=== PATIENT | male | born 1960 | race Caucasian/White ===

== ENCOUNTER 2023-06-20 11:19 | Emergency (ER) | payer OTHER, SELFPAY ==
--- NOTE | 2023-06-20 11:37 | ED.GENADULT ---
HPI - General Adult General Chief complaint: General Medical Stated complaint: Medication refill Source: patient Mode of arrival: ambulatory Limitations: no limitations History of Present Illness HPI narrative: Patient is a 63-year-old male presents emergency department requesting medication refill. He reports approximately 1 month ago he had cardiac stents placed at [facility], he was prescribed Brilinta 90 mg b.i.d., and initially received a 30 day supply. He states that he saw his primary guest services assistant in [place], [place] - Rai Ellis on 06/09, the prescription for Brilinta was never sent to pharmacy. He took his last dose this morning. He has been unable to make contact with his guest services assistant office for medication refill. Currently he is without any physical complaints. Related Data Previous Rx's Medication Instructions Recorded ticagrelor 90 mg tablet (Brilinta) 90 mg PO BID #14 tabs 06/20/23 Allergies Allergy/AdvReac Type Severity Reaction Status Date / Time No Known Allergies Allergy Verified 06/20/23 11:37 [No Known Allergies*] Review of Systems Review of Systems: Constitutional: No weight loss, fever, chills, weakness or fatigue. Skin: No rash or itching. Cardiovascular: No chest pain, chest pressure or chest discomfort. No palpitations or pedal edema. Respiratory: No shortness of breath, cough or sputum production. Gastrointestinal: No anorexia, nausea, vomiting or diarrhea. No abdominal pain or blood in stool. Genitourinary: No burning micturition. No urinary frequency or incontinence. Musculoskeletal: No muscle pain, back pain, joint pain or stiffness. Psychiatric: No depression or anxiety. Yes all other systems are reviewed and are negative PMFSH Past Medical History Attestation statement: The following information was validated with the patient. Source: old records reviewed Physical Exam ED Appearance: Alert.?Oriented to person, place and time. No acute distress.?Normal affect. Eyes: Pupils equal, round and reactive to light.? ENT: Pharynx normal.?? Neck: Normal inspection.? Neck supple.?? CVS: Heart sounds normal. Normal heart rate and rhythm.? Pulses normal.?? Respiratory: No respiratory distress.? Lung sounds clear to auscultation bilaterally?? Abdomen: Soft and non-tender. Skin: Skin warm and dry.? Normal skin color.? Extremities: No lower extremity edema.? No calf ttp? Neuro: Moves all extremities spontaneously. Sensation intact bilaterally. Ambulates with normal steady gait. Medical Decision Making Medical Decision Making MDM Narrative: Patient is a 63-year-old male past medical history of hypertension, migraines, recent coronary artery stenting at [facility] presenting to emergency department requesting medication refill. He is without any physical complaints. His physical examination is benign. He took his last dose of Brilinta the morning and he currently taking it twice daily as per HPI. I have sent a short course of Brilinta to his pharmacy, and advised to contact his primary care provider/guest services assistant to arrange for additional prescription refills. He verbalizes understanding. External Record Review External record reviewed: Outpatient record (Medical records from [facility] provided by patient) Chronic Conditions Patient?s care impacted by: Hypertension Discharge Plan Discharge Clinical Impression: History of coronary artery stent placement Patient Disposition: Home, Self-Care Additional Instructions: Please contact your guest services assistant or primary care provider 1st thing tomorrow morning to arrange for additional prescription refills. I have sent a short prescription of your Brilinta to the [facility] pharmacy. Prescriptions: New Brilinta 90 mg tablet 90 mg PO BID Qty: 14 0RF Referrals: Eddie King MD [Primary Care Provider] -
[2023-06-20 11:38] VITALS: BP 101/63; PULSE 55; RESP 19; TEMP 36.6; O2SAT 98; BMI 23.1
== END 2023-06-20 11:52 | disposition home or self-care (01) ==
PROVIDERS: Emergency Provider Emergency Medicine; PCP Physician Assistant Surgical
DX: Z76.0 Encounter for issue of repeat prescription (principal)
CPT/HCPCS: 99282

== ENCOUNTER 2024-03-25 06:04 | Emergency (ER) | payer OTHER, SELFPAY ==
[2024-03-25 06:07] VITALS: BP 113/78; PULSE 98; RESP 18; TEMP 36.4; O2SAT 100; BMI 20.5
--- NOTE | 2024-03-25 06:33 | ED_ITS ---
HPI - Male Genitourinary General Chief complaint: Urogenital-Male Stated complaint: catheter backed up Time Seen by Provider: 03/25/24 06:21 Source: patient Mode of arrival: ambulatory Limitations: no limitations History of Present Illness ED Provider: Dr. Bonnie Haynes HPI Narrative: Patient comes to the emergency room complaining of acute urinary retention. Patient states this is the 2nd time it happens, happened once before about a year ago. Patient states that he has history of multiple sclerosis. Patient states it has been almost 11 hours since the last time he was able to urinate. Patient denies any flank pain or back pain Related Data Previous Rx's ?Medication ?Instructions ?Recorded ticagrelor 90 mg tablet (Brilinta) 90 mg PO BID #14 tabs 06/20/23 tamsulosin 0.4 mg capsule 0.4 mg PO DAILY #14 caps 03/25/24 Allergies Allergy/AdvReac Type Severity Reaction Status Date / Time No Known Allergies Allergy Verified 03/25/24 06:11 [No Known Allergies*] Review of Systems Review of Systems: Constitutional : No Weight loss, No Fever, No Chills, No Night Sweats, No Fatigue, No Malaise ENT/Mouth : No Hearing loss, No Ear Pain, No Nasal Congestion, No Sinus Pain, No Hoarseness, No sore throat, No Rhinorrhea, No Swallowing Difficulty Eyes: No Eye Pain, No Swelling, No Redness, No Foreign Body, No Discharge, No Vision Changes Cardiovascular : No Chest Pain, No SOB, No Dyspnea on Exertion, No Orthopnea, No Edema, No Palpitations Respiratory : No Cough, No Sputum, No Wheezing, No Smoke Exposure, No Dyspnea Gastrointestinal : No Nausea, No Vomiting, No Diarrhea, No Constipation, No abdominal Pain, No Hematochezia, No Melena Genitourinary : Complaining of urinary distention, no hematuria or dysuria Musculoskeletal : No joint pain, No Myalgias, No Joint Swelling Skin : No Skin Lesions, No rash Neuro : No Weakness, No Numbness, No Paresthesias, No Loss of Consciousness, No Dizziness, No Headache Psych : No Anxiety/Panic, No Depression, No SI/HI/AH/VH, No Social Issues, Heme/Lymph: No Bruising, No Bleeding,No Lymphadenopathy Endocrine : No Polyuria, No Polydipsia, No Temperature Intolerance [facility], [facility] Past Medical History Medical History (Updated 03/25/24 @ 07:10 by Bonnie Haynes MD) Multiple sclerosis Social History Social History Smoked in Last 30 Days: No Use of substances other than those prescribed or required for medical reasons: Yes Substance Use Type: Marijuana Advance Directives: No Advance Directives Information Provided: Yes Do you have a plan to hurt others: No Plan Physical Exam Vital Signs: Vital Signs: Last Vital Signs Temp 97.6 F 03/25/24 06:07 Pulse 98 03/25/24 06:07 Resp 18 03/25/24 06:07 BP 113/78 03/25/24 06:07 Pulse Ox 100 03/25/24 06:07 O2 Del Method Room Air 03/25/24 06:07 BMI result Body Mass Index 20.5 Medications Administered Discontinued Medications Generic Name Dose Route Start Last Admin Trade Name Freq PRN Reason Stop Dose Admin Alprazolam 0.5 mg 03/25/24 06:43 03/25/24 06:50 Alprazolam 0.5 Mg Tablet PO 03/25/24 06:44 0.5 mg ONCE ONE Administration Medical Decision Making Lab Data Labs: Lab Results 03/25/24 Range/Units 06:39 Urine Color Yellow Urine Appearance Clear Urine pH 6.5 (5.0-9.0) Ur Specific [place] <= 1.005 (1.005-1.025) Urine Protein Negative (Neg-Trace) mg/dL Urine Glucose (UA) Negative (Negative) mg/dL Urine Ketones Negative (Negative) mg/dL Urine Blood Trace H (Negative) Urine Nitrite Negative (Negative) Ur Leukocyte Esterase Negative (Negative) Urine RBC 0-2 (0-2) /HPF Urine WBC 0-5 (0-5) /HPF Ur Squamous Epith Cells 0-2 (0-2) /HPF Urine Bacteria None Seen (None Seen) Hyaline Casts 0-2 (0-2) /LPF Discharge Plan Discharge Clinical Impression: Acute urinary retention Patient Disposition: Home, Self-Care Instructions: Urinary Retention in Men (ED), Vital Catheter Placement and Care (ED) Additional Instructions: Your Vital catheter needs to stay for at least 48 hours . Please follow-up with your urologist or you may return to the emergency room. Prescriptions: New tamsulosin 0.4 mg capsule 0.4 mg PO DAILY Qty: 14 0RF No Action Brilinta 90 mg tablet 90 mg PO BID Qty: 14 0RF Print Language: German
[2024-03-25] MEDS: ALPRAZolam 0.5 MG TABLET PO (06:50)
[2024-03-25 06:57] LABS: Appearance Urine Clear; Color Urine Yellow; Glucose Urine UA Negative (Negative); Leukocyte Esterase Urine Negative (Negative); Nitrite Urine Negative (Negative); PH 6.5 (5.0-9.0); Specific Gravity - Urine <= 1.005 (1.005-1.025); UMIC TRIGGER UACC YES; Urine Blood Trace (Negative); Urine Ketones Negative (Negative); Urine Protein Negative (Neg-Trace)
[2024-03-25 07:01] LABS: Bacteria Urine None Seen (None Seen); Hyaline Casts Urine 0-2 /LPF (0-2); RBC Urine 0-2 /HPF (0-2); Squamous Epithelial Cell Urine 0-2 /HPF (0-2); WBC Urine 0-5 /HPF (0-5)
[2024-03-25 07:22] VITALS: BP 114/65; PULSE 85; RESP 18; TEMP 37.2; O2SAT 100
== END 2024-03-25 07:23 | disposition home or self-care (01) ==
PROVIDERS: Emergency Provider Emergency Medicine; PCP Physician Assistant Surgical
DX: R33.8 Other retention of urine (principal); G35 Multiple sclerosis
CPT/HCPCS: 81001; 99282; 99284